=== PATIENT | male | born 1950 ===

== ENCOUNTER 2018-05-10 21:42 | Outpatient (CLI) | payer MEDICARE, OTHER | END 2018-05-10 23:59 | disposition short-term general hospital (02) | LOC: EMS 21:42 | PROVIDERS: ATTEND Surgery | DX: R07.9 Chest pain, unspecified (principal) | CPT/HCPCS: A0425; A0427 ==

== ENCOUNTER 2019-03-07 02:28 | Outpatient (CLI) | payer MEDICARE, OTHER | END 2019-03-07 02:29 | disposition short-term general hospital (02) | LOC: EMS 02:28 | PROVIDERS: ATTEND Surgery | DX: R42 Dizziness and giddiness (principal); R11.2 Nausea with vomiting, unspecified | CPT/HCPCS: A0425; A0427 ==

== ENCOUNTER 2020-09-21 07:03 | Outpatient (CLI) | payer OTHER | END 2020-09-21 23:59 | disposition critical access hospital (66) | LOC: EMS 07:03 | PROVIDERS: ATTEND Surgery | DX: R07.89 Other chest pain (principal) | CPT/HCPCS: A0425; A0427 ==

== ENCOUNTER 2020-09-21 07:21 | Emergency (ER) | payer MEDICARE, OTHER ==
[2020-09-21 08:06] LABS: BASOPHILS # (AUTO) 0.1 10^3/uL (0.0-0.1); BASOPHILS % (AUTO) 0.5 %; EOSINOPHILS # (AUTO) 0.8 10^3/uL (0.0-0.7); EOSINOPHILS % (AUTO) 5.2 %; LYMPHOCYTES # (AUTO) 2.2 10^3/uL (1.5-3.5); LYMPHOCYTES % (AUTO) 14.1 %; MEAN CORPUSCULAR HEMOGLOBIN 21.2 pg (27.0-31.0); MEAN CORPUSCULAR VOLUME 75.6 fL (80.0-94.0); MEAN PLATELET VOLUME 9.6 fL (7.4-11.4); MONOCYTES # (AUTO) 1.4 10^3/uL (0.0-1.0); MONOCYTES % (AUTO) 8.9 %; NEUTROPHILS # (AUTO) 10.8 10^3/uL (1.5-6.6); NEUTROPHILS % (AUTO) 70.6 %; PLT - PLATELET COUNT 367 10^3/uL (130-450); RED BLOOD COUNT 3.16 10^6/uL (4.70-6.10); RED CELL DISTRIBUTION WIDTH 20.3 % (12.0-15.0); WHITE BLOOD COUNT 15.3 x10^3/uL (4.8-10.8)
[2020-09-21 08:10] LABS: HGB - HEMOGLOBIN 6.7 g/dL (14.0-18.0)
--- NOTE | 2020-09-21 08:15 | ED Physician Documentation ---
PD HPI CHEST PAIN - Stated complaint Stated Complaint: CHEST PAIN/SOA - Chief complaint Chief Complaint: Cardiac - History obtained from History obtained from: Patient - Additional information Additional information: Emergency department complaining of chest pain/tightness that started around 2100 yesterday. He states that he has a history of coronary artery disease and has had a couple stents placed in recent years and he took a couple tabs of nitroglycerin. He states this made the pain completely resolved and he was able to go to sleep. However, he woke up around 6:00 this morning and noticed that the discomfort had come back to somewhat with a sense of tightness wrapping around his chest. The patient states that he They reported that they gave him a dose of nitroglycerin which seemed to be somewhat helpful again. Patient was also given aspirin in route. The patient states he does have shortness of breath, though this is a chronic thing for him and he does not feel that it is really any worse than his usual shortness of breath. He is a smoker and he has a history of COPD. The patient states he has chronic nausea and that he did have some nausea with the chest pain but is not sure if this is related directly to the chest pain or not. Patient denies history of hypertension or diabetes. He is a patient of Dr. Fernandez of cardiology, and thinks that he is due to see him in clinic. Patient denies any other complaints at this time. No radiation of the discomfort. No lightheadedness or diaphoresis. Patient is feeling a little better now, and denies any current chest discomfort. Review of Systems Ten Systems: 10 systems reviewed and negative Constitutional: reports: Reviewed and negative Eyes: reports: Reviewed and negative Ears: reports: Reviewed and negative Nose: reports: Reviewed and negative Throat: reports: Reviewed and negative Cardiac: reports: Chest pain / pressure, Pedal edema (chronic) Respiratory: reports: Dyspnea (chronic) GI: reports: Nausea (chronic). denies: Vomiting : reports: Reviewed and negative Skin: reports: Reviewed and negative Musculoskeletal: reports: Reviewed and negative Neurologic: reports: Reviewed and negative Psychiatric: reports: Reviewed and negative Endocrine: reports: Reviewed and negative Immunocompromised: reports: Reviewed and negative PD PAST MEDICAL HISTORY - Past Medical History Past Medical History: Yes Cardiovascular: Hypertension, Coronary artery disease, [place], Atrial fibrillation Respiratory: Emphysema, Shortness of breath, Tuberculosis, Other Neuro: None Endocrine/Autoimmune: None GI: GERD, Hiatal hernia, Diverticulitis : None HEENT: None Psych: None Musculoskeletal: Osteoarthritis Derm: None - Past Surgical History Past Surgical History: Yes General: Cholecystectomy, Bowel surgery - Present Medications Home Medications: Ambulatory Orders Medication Instructions Recorded Confirmed Budesonide/Formoterol 80/4.5 1 puffs INH BID 10/10/13 09/21/20 [Symbicort] Hyoscyamine [Levsin] 0.125 mg SL Q6HR 10/10/13 09/21/20 Nitroglycerin [Nitrostat] 0.4 mg SL Q5MIN PRN 10/10/13 09/21/20 Ondansetron [Zofran Odt] 4 mg PO Q6-8H PRN #15 tab.rapdis 10/10/13 09/21/20 Oxycodone HCl [Oxycontin] 10 mg PO BID 10/10/13 09/21/20 Rabeprazole Sodium [Aciphex] 20 mg PO DAILY 10/10/13 09/21/20 oxyCODONE [Roxicodone] 5 mg PO Q4-6H PRN 10/10/13 09/21/20 Amlodipine Besylate [Norvasc] 2.5 mg PO DAILY 09/21/20 09/21/20 Butalbital/Aspirin/Caffeine 1 - 2 each PO Q4HR PRN 09/21/20 09/21/20 [Fiorinal 50-325-40 mg Capsule] Ferrous Sulfate 325 mg PO DAILY 09/21/20 09/21/20 Finasteride [Proscar] 5 mg PO DAILY 09/21/20 09/21/20 Metoprolol Tartrate [Lopressor] 50 mg PO BID 09/21/20 09/21/20 Rivaroxaban [Xarelto] 15 mg PO DAILY 09/21/20 09/21/20 - Allergies Allergies/Adverse Reactions: Allergies Allergy/AdvReac Type Severity Reaction Status Date / Time levofloxacin [From Levaquin] Allergy Severe Nausea Verified 09/21/20 07:36 codeine [Codeine] AdvReac Severe Emesis Verified 09/21/20 07:36 erythromycin base AdvReac Intermediate Emesis Verified 09/21/20 07:36 [Erythromycin Base] morphine AdvReac Intermediate Emesis Verified 09/21/20 07:36 - Social History Does the pt smoke?: Yes Smoking Status: Current every day smoker Does the pt drink ETOH?: No Does the pt have substance abuse?: No - Immunizations Immunizations are current?: Yes PD ED PE NORMAL - Vitals Vital signs reviewed: Yes - General General: Alert and oriented X 3, No acute distress - HEENT HEENT: Atraumatic, PERRL, EOMI, Moist mucous membranes - Neck Neck: Supple, no meningeal sign - Cardiac Cardiac: RRR, No murmur - Respiratory Respiratory: No respiratory distress, Other (Mild bilateral rhonchi, with slightly decreased air movement throughout entire lung regalado. Patient appears to have mildly labored respirations after sitting up in bed for the lung exam.) - Abdomen Abdomen: Soft, Non tender, Non distended - Derm Derm: Normal color, Warm and dry, No rash - Extremities Extremities: No deformity, Other (Trace pitting edema bilateral ankles and feet.) - Neuro Neuro: Alert and oriented X 3, robotic technician 2-12 intact, Normal speech, Other (Grossly intact) - Psych Psych: Normal mood, Normal affect Results - Vitals Vitals: Vital Signs - 24 hr 09/21/20 09/21/20 09/21/20 09:22 10:17 10:33 Temperature 36.3 C L 36.7 C 37.1 C Heart Rate 89 76 72 Respiratory 24 22 22 Rate Blood Pressure 142/87 H 161/76 H 166/76 H O2 Saturation 100 09/21/20 10:45 Temperature 36.8 C Heart Rate 76 Respiratory 19 Rate Blood Pressure 161/82 H O2 Saturation Oxygen O2 Source Nasal cannula - EKG (time done) 0723 Rate: Rate (enter#) (87) Rhythm: NSR, Other (PVC's) Hewitt: LAD Intervals: Normal MI QRS: Normal Ischemia: Normal ST segments, Non specific changes Compare to prior EKG: Old EKG unavailable Computer interpretation: Disagree with computer (rate is not tachycardic) - Labs Labs: Laboratory Tests 09/21/20 09/21/20 09/21/20 07:48 07:56 07:56 WBC 15.3 H RBC 3.16 L Hgb 6.7 L* Hct 23.9 L MCV 75.6 L MCH 21.2 L MCHC 28.0 L RDW 20.3 H Plt Count 367 MPV 9.6 Neut # (Auto) 10.8 H Lymph # (Auto) 2.2 Isabela # (Auto) 1.4 H Eos # (Auto) 0.8 H Baso # (Auto) 0.1 Absolute Nucleated RBC 0.00 Nucleated RBC % 0.0 RBC Morph Micro Appear 1+ MACROCYTOSIS Sodium 131 L Potassium 4.1 Chloride 94 L Carbon Dioxide 28 Anion Gap 9.0 BUN 14 Creatinine 1.1 Estimated GFR (MDRD) 66 L Glucose 139 H Calcium 8.9 Total Bilirubin 0.6 AST 23 ALT 21 Alkaline Phosphatase 212 H Troponin I High Sens Total Protein 7.8 Albumin 3.0 L Globulin 4.8 H Albumin/Globulin Ratio 0.6 L Lipase 17 L SARS-CoV-2 (PCR) Blood Type Blood Type Recheck O POSITIVE Antibody Screen Crossmatch IS Only 09/21/20 09/21/20 09/21/20 07:56 09:15 10:15 WBC RBC Hgb Hct MCV MCH MCHC RDW Plt Count MPV Neut # (Auto) Lymph # (Auto) Isabela # (Auto) Eos # (Auto) Baso # (Auto) Absolute Nucleated RBC Nucleated RBC % RBC Morph Micro Appear Sodium Potassium Chloride Carbon Dioxide Anion Gap BUN Creatinine Estimated GFR (MDRD) Glucose Calcium Total Bilirubin AST ALT Alkaline Phosphatase Troponin I High Sens 29.7 H* Total Protein Albumin Globulin Albumin/Globulin Ratio Lipase SARS-CoV-2 (PCR) NOT DETECTED Blood Type O POSITIVE Blood Type Recheck Antibody Screen NEGATIVE Crossmatch IS Only See Detail - Rads (name of study) CXR Radiology: Final report received, EMP read indepedently, See rad report (increased interstitial markings, consolidation at bases, pulmonary edema vs infiltrate) PD MEDICAL DECISION MAKING - ED course Complexity details: reviewed old records, reviewed results, re-evaluated patient, considered differential, d/w patient ED course: The patient was worked up with labs, EKG, and chest x-ray. He was found to have an elevated troponin, but no ST elevations on EKG. He was also found to have a HGB of 6.7. Our last comparison was in 2012, and was 12. I did go back and discuss the findings with the pt, and he stated that he was being worked up for anemia currently with his doctor and through [facility]. He refused rectal exam, stating that he had just turned in a stool sample to his doctor a month ago, and that it was negative for occult blood. We had a discussion about why it would be helpful to do this again, but pt at this time is not agreeable. He did agree to blood transfusion, however, and this was started in the ED. I discussed the case with Dr. Zarate of cardiology at [facility], as Dr. Fernandez was not available. He felt the pt should be transferred to [facility] for further care. Because of the possible need for boarding, I was directed to also discuss the case with Dr. Da Silva in the ED at [facility], who did accept the pt in transfer. Later, the hospitalist, Dr. Miller, also called and I spoke with him, as well. The consensus was to wait on heparin until a source of bleeding was ruled out and pt was fully transfused. Departure - Departure Disposition: 02 Transfer Acute Care Hosp Clinical Impression: Severe anemia, NSTEMI (non-ST elevated myocardial infarction) Condition: Serious Discharge Date/Time: 09/21/20 11:20
[2020-09-21 08:16] LABS: ALBUMIN/GLOBULIN RATIO 0.6 (1.0-2.2); BILIRUBIN,TOTAL 0.6 mg/dL (0.2-1.0); CALCIUM 8.9 mg/dL (8.5-10.3); CREATININE 1.1 mg/dL (0.6-1.2); TOTAL PROTEIN 7.8 g/dL (6.7-8.2)
--- NOTE | 2020-09-21 08:47 | XRAY Report ---
PROCEDURE: Chest 1 View X-Ray INDICATIONS: Chest pain TECHNIQUE: One view of the chest was acquired. COMPARISON: 10/10/2013 FINDINGS: Surgical changes and devices: None. Lungs and pleura: Biapical interstitial opacity in both lungs consistent with scarring is similar to the prior study. Diffusely increased interstitial markings in both lungs has worsened when compared w ith the prior study. Small focus of suspected consolidation in the left lung base. No visible pleural effusion or findings of pneumothorax. Mediastinum: Mediastinal contours appear normal. Heart size is normal. Bones and chest wall: No suspicious bony lesions. Overlying soft tissues appear unremarkable. IMPRESSION: Increased interstitial markings in both lungs when compared with the prior study, along with a new fo cus of suspected consolidation overlying the left hemidiaphragm. Findings may be infectious/inflammat ory in nature although pulmonary edema could cause a similar appearance. Correlation with other clini bekah parameters will be needed to differentiate these potential entities. Biapical pleural and parenchymal scarring is similar to the prior study. Reviewed by: John Rodrigues MD on 09/21/2020 8:46 AM PST Approved by: John Rodrigues MD on 09/21/2020 8:46 AM PST Station ID: [id number]
[2020-09-21] MEDS ORDERED: oxyCODONE 5 MG TABLET PO STA (09:04)
[2020-09-21 10:46] VITALS: BP 161/82
== END 2020-09-21 11:20 | disposition short-term general hospital (02) ==
LOC: EDUNIT# → ED 07:21
DX: I21.4 Non-ST elevation (NSTEMI) myocardial infarction (principal); D64.9 Anemia, unspecified; J44.9 Chronic obstructive pulmonary disease, unspecified; F17.200 Nicotine dependence, unspecified, uncomplicated; I10 Essential (primary) hypertension; I48.91 Unspecified atrial fibrillation; Z79.01 Long term (current) use of anticoagulants; Z95.5 Presence of coronary angioplasty implant and graft; Z20.828 Contact with and (suspected) exposure to other viral communicable diseases
CPT/HCPCS: 36415; 71045; 80053; 83690; 84484; 85025; 86850; 86900; 86901; 86920; 87635; 93005; 99285; A9270; P9016

== ENCOUNTER 2020-09-21 11:16 | Outpatient (CLI) | payer OTHER | END 2020-09-21 11:17 | disposition short-term general hospital (02) | LOC: EMS 11:16 | PROVIDERS: ATTEND Surgery | DX: I21.4 Non-ST elevation (NSTEMI) myocardial infarction (principal) | CPT/HCPCS: A0425; A0426 ==